=== PATIENT | male | born 1975 | race Two or more races ===

== ENCOUNTER 2020-03-12 18:05 | Emergency (ER) | payer OTHER ==
[~2020-03-12] VITALS: Ht 167.6 cm; Wt 64.4 kg
[2020-03-12 18:10] VITALS: BP 110/60
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
== END 2020-03-12 19:59 | disposition left against medical advice (07) ==
LOC: ER 18:06
DX: R51.9 Headache, unspecified (principal); Z53.21 Procedure and treatment not carried out due to patient leaving prior to being seen by health care provider